=== PATIENT | male | born 1950 | race Caucasian/White ===

== ENCOUNTER 2018-12-02 20:14 | Emergency (ER) | payer MEDICARE ==
[2018-12-02] MEDS ORDERED: Metoclopramide IV* 5 MG/ML 2 ML VIAL IV SLOW PU ONE (22:33)
[2018-12-02] MEDS ORDERED: diPHENhydraMINE PO* 50 MG PO ONE (22:33)
[2018-12-02] MEDS ORDERED: Ketorolac INJ* 30 MG/ML 1 ML VIAL IV PUSH ONE (22:33)
[2018-12-02] MEDS ORDERED: NS 0.9% 1000 ML* 1,000 ML IV ONE (22:34)
--- NOTE | 2018-12-02 22:38 | ED ---
Headache - HPI Summary HPI Summary: This patient is a 68 year old M presenting to [facility] with a chief complaint of left sided REHMAN since 7 days ago. The patient rates the pain 8/10 in severity. Symptoms aggravated by nothing. Symptoms alleviated by medication (Maxalt). Patient reports nausea. Patient denies photophobia. Patient notes that he was told not to take Maxalt more than 3 days consecutively. - History Of Current Complaint Chief Complaint: EDHeadache Stated Complaint: HEADACHE Time Seen by Provider: 12/02/18 22:28 Hx Obtained From: Patient Onset/Duration: Gradual Onset, Started weeks ago - 1 week, Still Present Initially Headache Was: Initial Pain Scale(0-10)= - 8 Currently Pain Is: Current Pain Scale(0-10)= - 8 Timing: Intermittent, Lasting: Aggravating Factor: Nothing Allevating Factors: Medication Associated Signs And Symptoms: Nausea - Allergies/Home Medications Allergies/Adverse Reactions: Allergies Allergy/AdvReac Type Severity Reaction Status Date / Time No Known Allergies Allergy Verified 12/02/18 20:22 PMH/Surg Hx/FS Hx/Imm Hx Endocrine/Hematology History: Denies: Hx Diabetes Opthamlomology History: Denies: Hx Legally Blind EENT History: Denies: Hx Deafness Neurological History: Reports: Hx Headaches - Surgical History Surgery Procedure, Year, and Place: none reported Infectious Disease History: No Infectious Disease History: Denies: Traveled Outside the [place] in Last 30 Days - Family History Known Family History: Negative: Diabetes Review of Systems Negative: Fever Negative: Epistaxis Negative: Cough Positive: Nausea Positive: Headache All Other Systems Reviewed And Are Negative: Yes Physical Exam - Summary Physical Exam Summary: VITAL SIGNS: Reviewed. GENERAL: Patient is a well-developed and nourished MALE who is lying comfortable in the stretcher. Patient is not in any acute respiratory distress. HEAD AND FACE: No signs of trauma. No ecchymosis, hematomas or skull depressions. No sinus tenderness. EYES: PERRLA, EOMI x 2, No injected conjunctiva, no nystagmus. EARS: Hearing grossly intact. Ear canals and tympanic membranes are within normal limits. MOUTH: Oropharynx within normal limits. NECK: Supple, trachea is midline, no adenopathy, no JVD, no carotid bruit, no c- spine tenderness, neck with full ROM. CHEST: Symmetric, no tenderness at palpation LUNGS: Clear to auscultation bilaterally. No wheezing or crackles. CVS: Regular rate and rhythm, S1 and S2 present, no murmurs or gallops appreciated. ABDOMEN: Soft, non-tender. No signs of distention. No rebound no guarding, and no masses palpated. Bowel sounds are normal. EXTREMITIES: FROM in all major joints, no edema, no cyanosis or clubbing. NEURO: Alert and oriented x 3. No acute neurological deficits. Speech is normal and follows commands. SKIN: Dry and warm Triage Information Reviewed: Yes Vital Signs On Initial Exam: Initial Vitals Temp Pulse Resp BP Pulse Ox 96.8 F 54 16 179/95 98 12/02/18 20:15 12/02/18 20:15 12/02/18 20:15 12/02/18 20:15 12/02/18 20:15 Vital Signs Reviewed: Yes Diagnostics - Vital Signs Vital Signs Temp Pulse Resp BP Pulse Ox 12/02/18 22:31 48 156/87 96 12/02/18 22:30 47 96 12/02/18 20:15 96.8 F 54 16 179/95 98 - Laboratory Lab Statement: Any lab studies that have been ordered have been reviewed, and results considered in the medical decision making process. Headache Course/Dx - Course Course Of Treatment: This patient is a 68 year old M presenting to [facility] with a chief complaint of left sided REHMAN since 7 days ago. The patient rates the pain 8/ 10 in severity. Symptoms aggravated by nothing. Symptoms alleviated by medication (Maxalt). Patient reports nausea. Patient denies photophobia. Patient notes that he was told not to take Maxalt more than 3 days consecutively. In the ED course the patient was given toradol, IV fluids, Reglan , and Benadryl. Patient reports feeling better and wants to go home. Patient will be discharged home with follow up from PCP. The patient is agreeable with this plan. - Diagnoses Provider Diagnoses: Migraine headache Discharge - Sign-Out/Discharge Documenting (check all that apply): Patient Departure - discharge - Discharge Plan Condition: Stable Disposition: HOME Patient Education Materials: Migraine Headache (ED) Referrals: [facility] [Outside] Additional Instructions: follow up with primary care physician in 1-2 days. Return to the emergency department with any new or worsening symptoms. - Attestation Statements Document Initiated by Scribe: Yes Documenting Scribe: Mreari Calderon Provider For Whom Scribe is Documenting (Include Credential): Matt Ledesma MD Scribe Attestation: Merari Ware, scribed for Matt Ledesma MD on 12/02/18 at 2305. Status of Scribe Document: Ready
[2018-12-02 23:19] VITALS: BP 149/77
== END 2018-12-02 23:17 | disposition home or self-care (01) ==
LOC: ED 20:14
DX: G43.909 Migraine, unspecified, not intractable, without status migrainosus (principal); R11.0 Nausea
CPT/HCPCS: 96374; 96375; 99282; A9270-GY; J1885; J2765